=== PATIENT | female | born 1945 | race Caucasian/White ===

== ENCOUNTER 2018-04-22 08:44 | Outpatient (CLI) | payer MEDICARE, OTHER, SELFPAY ==
[2018-04-22 10:38] LABS: Abs Immature Grans 0.01 k/cumm (0.0-0.09); Absolute Basophil Count 0.05 k/cumm (0.0-0.2); Absolute Eosinophil Count 0.13 k/cumm (0.0-0.7); Absolute Lymphocyte Count 2.73 k/cumm (1.2-3.4); Absolute Monocyte Count 0.63 k/cumm (0.11-0.7); Absolute Neutrophil Count 3.65 k/cumm (1.2-6.7); Basophils % 0.7; Eosinophils % 1.8; HCT 42.1 % (36.0-46.0); HGB 13.5 g/dL (12.0-15.5); Immature Grans % 0.1; Lymphocytes % 37.9; Mean Corp. HGB Concentration 32.1 g/dL (32.0-36.0); Mean Corpuscular Hemoglobin 31.4 pg (27.0-33.0); Mean Corpuscular Volume 97.9 fL (80-95); Mean Platelet Volume 10.5 fL (8.0-11.0); Monocytes % 8.8; Neutrophils % 50.7; Platelet Count 331 x1000/uL (130-400); RBC Distribution Width 14.3 % (11.7-14.6)
== END 2018-04-22 09:04 ==
PROVIDERS: PCP Family Medicine; Visit Provider Orthopaedic Surgery
DX: M25.552 Pain in left hip (principal); M16.12 Unilateral primary osteoarthritis, left hip; E78.5 Hyperlipidemia, unspecified; Z01.818 Encounter for other preprocedural examination
CPT/HCPCS: 36415; 86850; 86900; 86901; 85025

== ENCOUNTER 2018-04-25 06:00 | Inpatient (IN) | payer MEDICARE, OTHER, SELFPAY ==
[2018-04-25] VITALS (15 sets, daily range): BP systolic 116–150; BP diastolic 57–80; PULSE 64–84; RESP 13–22; TEMP 35.8–37.1; O2SAT 92–98
[2018-04-25] MEDS: Lactated Ringers 1,000 ML 80 ML IV ×2 (06:47→09:18)
--- NOTE | 2018-04-25 09:03 | DI.RAD_ITS ---
SYMPTOMS/DIAGNOSIS: LEFT HIP OSTEOARTHRITIS LEFT HIP IN THE OR: The orthopedic hardware appears in good position. Portions of the abdomen are not well visualized due to patient body habitus and surgical equipment. IMPRESSION: Left THR.
--- NOTE | 2018-04-25 10:40 | DI.RAD_ITS ---
SYMPTOM/DIAGNOSIS: CHECK TOTAL HIP COMPONENTS, OA LT HIP, S/P TOTAL HIP AP PELVIS: There are again seen post surgical changes of a left total hip replacement. The orthopedic hardware appears in good position. The bones are intact. Skin kiera are present. The soft tissues are unremarkable. IMPRESSION: Status post left THR.
[2018-04-25] MEDS: oxyCODONE-CR 10 MG TABCR PO (11:54)
[2018-04-25] MEDS: POTASSIUM CHLORIDE/0.9% NACL 1,000 ML 125 MEQ IV (12:11)
[2018-04-25] MEDS: Docusate Sodium 100 MG CAP PO ×2 (14:20→19:27)
--- NOTE | 2018-04-25 14:56 | PT.INIE ---
Date of service: 04/25/18 Time of Service: 14:56 PT Notes Inpatient Physical Therapy Evaluation Date: 04/25/18 Referring Doctor: Trever Conrad PT Orders: PT CONSULT: mobilize post op L total hip. WBAT to L leg. total hip precautions L Precautions: left posterior total hip precautions, WBAT L LE Patient Profile/Admitting Diagnosis: Pt is a 72yr old female s/p left posterior total hip arthroplasty by Dr. Conrad 04/25/18 PMHX: calcaneal tuberosity right calcaneous Social History/Home Situation: Lives in house with spouse in [place], 3 steps no railing to enter, flight of steps inside but does not use them, can stay on one level inside of home. Baselne mobility independent gait with no device, independent with ADLS Equipment Owned/DME: FWW, commode Subjective: Pt lying in bed, alert, watching TV, agreeable to PT consult. States she hopes she can go home tomorrow. Objective: General Observation: IV L UE, abduction pillow between legs, ice pack left hip, yoon catheter, LAURIE hose Mental Status: A& ox3 Pain: no c/o pain Bed Mobility/Transfers: Supine-sit: HOB 30 degrees, Kendall for L LE Sit-stand: SBA with FWW Stand-sit: SBA Sit-supine: HOB flat, Kendall for L LE Gait: CGA with FWW 35ftx2 WBAT L LE, step through gait pattern with cues for sequencing. Pt returned to bed after session completed, abduction pillow positioned between legs. Precautions: Pt has pre-op packet with posterior JENNY instructions, home exercise program and precaution handouts provided. Pt instructed in 3/3 posterior hip precautions, pt verbalized understanding. Therex: Pt has issued home exercise program, performed ankle pumps, quad sets and glute sets x 20 reps Balance: Static Sitting: normal Dynamic Sitting: normal Static Standing: fair Dynamic Standing:fair Special Tests: Mobility Limitations Standardized Measure [facility] AM-PAC 6 clicks Basic Mobility Inpatient Short Form: Raw Score: 18 Standardized Score: 43.63 CMS Score: 46.58% CMS Modifier: CK Informed Consent/Education: Patient instructed in purpose of PT consult and plan of care. Assessment: Pt is a 72yr old female s/p left posterior total hip arthroplasty by Dr. Conrad 04/25/18. Patient presents with clinical signs and symptoms consistent with JENNY, as demonstrated by the following impairment level findings: edema left hip, weakness left hip, decreased strength with bed mobility requiring assist for L LE into/out of bed, decreased strength with standing transfers and gait mobiilty requiring FWW for stability to prevent falls, decreased static and dynamic standing balance s/p JENNY. Pt will benefit from therapy intervention for strengtheing and progressive mobility training. Anticipate return to home setting when medically cleared. Impairments are contributing to the following functional limitations: AMPAC score CMS Score: 46.58% Patient is assessed as a Low 61288 complexity based on the following: History: see above Examination:see aove Presentation: stable Decision Making: AMPAC score CMS Score: 46.58% Goals: Goals X1 week 1. Supine-Sit: supervision 2. Sit-Supine: supervision 3. Sit-Stand: supervision with FWW 4. Stand-Sit: supervision 5. Bed-Chair SBA with FWW 6. Chair-Bed SBA with FWW 7. Gait SBA with FWW 75ftx2 WBAT L LE 8. Stairs up/down 3 steps with cane, CGA WBAT L LE 9. Independent with home exercise program for JENNY Plan of Care/Treatment Plan: 1-2x/day, 7 days/week x 1 week. Plan of care has been reviewed with the LIVE TRUCK TECHNICIAN providing the service under Physical Therapy direction. Initiate Physical Therapy intervention for strengthening, bed mobility, transfers, gait, stairs, balance training, use of assistive device. DISCHARGE RECOMMENDATIONS: Home, pt has all DME TREATMENT CODE/TIME: 25min IE 1350 G Codes in the area mobility of walking and moving around: current status [id number] CK; projected status GP [id number]. Discharge status (if discharging) GP [id number] CK based on AMPAC score CMS Score: 46.58% Nohelia Louis PT.
--- NOTE | 2018-04-25 15:10 | IN_ITS ---
Date of service: 04/25/18 Time of Service: 14:56 PT Notes Inpatient Physical Therapy Evaluation Date: 04/25/18 Referring Doctor: Trever Conrad PT Orders: PT CONSULT: mobilize post op L total hip. WBAT to L leg. total hip precautions L Precautions: left posterior total hip precautions, WBAT L LE Patient Profile/Admitting Diagnosis: Pt is a 72yr old female s/p left posterior total hip arthroplasty by Dr. Conrad 04/25/18 PMHX: calcaneal tuberosity right calcaneous Social History/Home Situation: Lives in house with spouse in [place], 3 steps no railing to enter, flight of steps inside but does not use them, can stay on one level inside of home. Baselne mobility independent gait with no device, independent with ADLS Equipment Owned/DME: FWW, commode Subjective: Pt lying in bed, alert, watching TV, agreeable to PT consult. States she hopes she can go home tomorrow. Objective: General Observation: IV L UE, abduction pillow between legs, ice pack left hip , yoon catheter, LAURIE hose Mental Status: A& ox3 Pain: no c/o pain Bed Mobility/Transfers: Supine-sit: HOB 30 degrees, Kendall for L LE Sit-stand: SBA with FWW Stand-sit: SBA Sit-supine: HOB flat, Kendall for L LE Gait: CGA with FWW 35ftx2 WBAT L LE, step through gait pattern with cues for sequencing. Pt returned to bed after session completed, abduction pillow positioned between legs. Precautions: Pt has pre-op packet with posterior JENNY instructions, home exercise program and precaution handouts provided. Pt instructed in 3/3 posterior hip precautions, pt verbalized understanding. Therex: Pt has issued home exercise program, performed ankle pumps, quad sets and glute sets x 20 reps Balance: Static Sitting: normal Dynamic Sitting: normal Static Standing: fair Dynamic Standing:fair Special Tests: Mobility Limitations Standardized Measure [facility] AM-PAC 6 clicks Basic Mobility Inpatient Short Form: Raw Score: 18 Standardized Score: 43.63 CMS Score: 46.58% CMS Modifier: CK Informed Consent/Education: Patient instructed in purpose of PT consult and plan of care. Assessment: Pt is a 72yr old female s/p left posterior total hip arthroplasty by Dr. Conrad 04/25/18. Patient presents with clinical signs and symptoms consistent with JENNY, as demonstrated by the following impairment level findings : edema left hip, weakness left hip, decreased strength with bed mobility requiring assist for L LE into/out of bed, decreased strength with standing transfers and gait mobiilty requiring FWW for stability to prevent falls, decreased static and dynamic standing balance s/p JENNY. Pt will benefit from therapy intervention for strengtheing and progressive mobility training. Anticipate return to home setting when medically cleared. Impairments are contributing to the following functional limitations: AMPAC score CMS Score: 46.58% Patient is assessed as a Low 25424 complexity based on the following: History: see above Examination:see aove Presentation: stable Decision Making: AMPAC score CMS Score: 46.58% Goals: Goals X1 week 1. Supine-Sit: supervision 2. Sit-Supine: supervision 3. Sit-Stand: supervision with FWW 4. Stand-Sit: supervision 5. Bed-Chair SBA with FWW 6. Chair-Bed SBA with FWW 7. Gait SBA with FWW 75ftx2 WBAT L LE 8. Stairs up/down 3 steps with cane, CGA WBAT L LE 9. Independent with home exercise program for JENNY Plan of Care/Treatment Plan: 1-2x/day, 7 days/week x 1 week. Plan of care has been reviewed with the LICENSED BONDSMAN providing the service under Physical Therapy direction. Initiate Physical Therapy intervention for strengthening, bed mobility, transfers, gait, stairs, balance training, use of assistive device. DISCHARGE RECOMMENDATIONS: Home, pt has all DME TREATMENT CODE/TIME: 25min IE 1350 G Codes in the area mobility of walking and moving around: current status [id number] CK; projected status GP [id number]. Discharge status (if discharging) GP G8980 CK based on AMPAC score CMS Score: 46.58% Nohelia Louis PT.
[2018-04-25] MEDS: Ketorolac 30 MG/ML VIAL IVP ×2 (17:04→21:35)
[2018-04-25] MEDS: Normal Saline Flush 10 ML SYR IVP (17:05)
[2018-04-25] MEDS: POTASSIUM CHLORIDE/0.9% NACL 1,000 ML 60 MEQ IV (21:34)
[2018-04-25] MEDS: Atorvastatin 20 MG TAB PO (21:35)
[2018-04-26 01:05] VITALS: BP 99/62; PULSE 61; RESP 18; TEMP 36.5; O2SAT 95
[2018-04-26] MEDS: Mylanta Suspension 30 ML CUP PO (03:10)
[2018-04-26] MEDS: Ketorolac 30 MG/ML VIAL IVP ×2 (03:50→10:36)
[2018-04-26 03:52] VITALS: BP 106/62; PULSE 68; RESP 16; TEMP 36.3; O2SAT 96
[2018-04-26 06:49] LABS: HCT 31.3 % (36.0-46.0); HGB 10.1 g/dL (12.0-15.5); Mean Corp. HGB Concentration 32.3 g/dL (32.0-36.0); Mean Corpuscular Hemoglobin 31.6 pg (27.0-33.0); Mean Corpuscular Volume 97.8 fL (80-95); Mean Platelet Volume 10.7 fL (8.0-11.0); Platelet Count 246 x1000/uL (130-400); RBC Distribution Width 13.8 % (11.7-14.6); White Blood Cell Count 12.09 k/cumm (4.4-10.8)
--- NOTE | 2018-04-26 07:54 | ROE_ITS ---
REPORT OF OPERATIVE PROCEDURE DATE OF PROCEDURE April 25, 2018 PREOPERATIVE DIAGNOSIS Osteoarthritis left hip. POSTOPERATIVE DIAGNOSIS Osteoarthritis left hip. PROCEDURE Left total hip arthroplasty. COMPONENTS USED A 56 mm diameter acetabular shell, a 56 x 36 neutral polyethylene liner, #7 Press-Fit stem high offse t and a Plus 8.5 36-mm diameter ceramic femoral head. The components were all Press-Fit. ANESTHESIA Spinal. SURGEON Trever Conrad M.D. LABORATORY ASSOCIATE Antonio George INDICATIONS This is a 72-year-old white female with longstanding osteoarthritis of both hips, the left however be ing the mainly symptomatic one. She has progressed to the point where she can no longer perform activ ities of daily living because of the pain. She uses crutches to walk. X-rays show hypertrophic osteoa rthritis of her left hip with loss of hip joint space, hypertrophic spurring around the acetabular ma rgins and at the femoral head neck junction. Because of failure to control her symptoms with conserva tive treatment, surgery was recommended. The risks and complications of total hip replacement were ex plained to the patient in detail preoperatively. She wished to proceed as soon as possible. PROCEDURE The patient was taken to the operating room on 04/25/2018. A spinal anesthetic was administered. She was then turned to the left lateral position on the operating table. Position was maintained with a pneumatic beanbag. The left hip was prepped and draped free in the usual sterile fashion. A standard posterolateral incision was made centered over the greater trochanter. The incision length was simons ied down through the skin and subcu to the iliotibial band. The iliotibial band and gluteus fascia we re incised in line with the skin incision. There were several areas where the IT band was adherent to the greater trochanter because of scarring. The scar tissue was released. Charnley self-retraining r etractor was inserted. The piriformis tendon was identified. Tag suture was placed in the tendon. Th e tendon was then released from the posterior femoral neck. The remainder of the short external rotat ors were then released with electrocautery. An incision was made in the posterior capsule and a poste rior capsular flap was developed. Anterior capsulectomy was performed. The femoral head was dislocate d. The femoral head was resected at an appropriate level and angle using femoral neck resection guide and oscillating saw. Acetabular retractors were inserted and the acetabulum was serially reamed up t o a size 56 diameter acetabular shell. The acetabular shell was then Press-Fit and the Press-Fit was supplemented with one screw through the acetabular shell of 30 millimeters. I then used an osteotome and a rongeur and removed the hypertrophic spurs circumferentially around th e components so the spurs would not impinge on the femoral component and cause dislocation. Trial gypsy er was inserted and attention was turned to the femoral side. The femoral canal was then serially reamed with straight reamers, and then serially broached until th ere was a fairly tight fit with a size 6 stem. The 6 broach was left in place. Trial reduction was pe rformed. Intraoperative AP x-ray was obtained. The intraoperative AP x-ray shows the limb lengths we re equalized with a Plus 8.5 femoral head, but that the 6 stem was a little small and could be upsize d for better fit and fill. I then removed the trial components. The trial in the center hole plug of the acetabular shell was inserted and the actual liner neutral 56 x 36 was then placed in the acetab ular shell and locked into place with the impactor mallet. On the femoral side, I broached up to a s ize 7 broach, which provided an excellent tight fit. The actual stem size 7 BALTAZAR porous coated [place] s tem was then placed in the femur and impacted into place until fully seated. A very tight Press-Fit w as obtained. A 36 Plus 8.5 ceramic femoral head was then placed on the neck of the stem and locked in to place with the impactor mallet. The femoral component was then reduced into the acetabulum. Range of motion was checked. The hip was stable to 90 degrees of flexion with 60 degrees of internal rotati on and was stable with external rotation in extension. The left leg was abducted in a Gonzalez stand and closure was begun. 2 grams of tranexamic acid and 150 cc of saline were then irrigated in the wound and I let it stay in the wound for a minute before suctioning. I then placed Betadine and saline in t he wound and left it in place for another minute before suctioning. The previously developed posterio r capsular flap was attached to the posterior edge of the greater trochanter by interrupted #2 FiberW katherine passed through three drill holes in the posterior greater trochanter and the sutures were tied ov er bone. The piriformis tendon was attached to the posterior edge of the abductor tendon at the tip o f the trochanter with interrupted [id number] sutures of #1-Vicryl suture material. The wound mar gins were then infiltrated with 0.5% Marcaine with epinephrine solution. The IT band and gluteus fasc ia were approximated with interrupted [id number] sutures of #1 -Vicryl suture material. The sub cu was approximated with interrupted #2-0 Vicryl sutures. The skin edges were approximated with skin kiera. Sterile dressings were applied, followed by a light compressive dressing to the left latera l hip. The patient was then turned supine on the operating table. An abduction pillow was placed be tween her legs. She was discharged to Recovery Room in good condition. Estimated blood loss 300 cc. She tolerated the procedure well and experienced no intraoperative complications.
[2018-04-26] MEDS: Multivitamin w/Minerals TAB 1 TAB PO (08:01)
[2018-04-26] MEDS: Docusate Sodium 100 MG CAP PO (08:01)
[2018-04-26] MEDS: Pantoprazole 40 MG TABCR PO (08:01)
[2018-04-26 08:02] VITALS: BP 113/69; PULSE 76; RESP 17; TEMP 36.7; O2SAT 97
--- NOTE | 2018-04-26 09:30 | PT.INTREAT ---
Date of service: 04/26/18 Time of Service: 07:30 PT Notes Inpatient Physical Therapy Treatment Note Date: 04/26/18 PRECAUTIONS: Fall precautions, WBAT L LE SUBJECTIVE: Pt lying in bed, agreeable to PT session and getting up to chair for breakfast. States she is feeling good, no pain, some stiffness from lying still all night. Pt is eager to go home today if possible. OBJECTIVE: General Observation: IV UE, abduction pillow between legs, ice pack left hip, yoon catheter, LAURIE hose Pain: no c/o pain Bed Mobility/Transfers: Supine-sit: independent Sit-stand: independent with FWW Stand-sit: independent Bed-chair: independent Gait: independent with FWW 200ft WBAT L LE. Pt up in chair for breakfast after session completed. Stairs: up/down 5 steps with supervision with railing and cane, WBAT L LE Precautions: Reviewed posterior JENNY instructions, home exercise program and precaution handouts provided. Pt instructed in 3/3 posterior hip precautions, pt verbalized understanding. Therex: Performed ankle pumps, quad sets and glute sets x 20 reps Balance: Static Sitting: normal Dynamic Sitting: normal Static Standing: fair Dynamic Standing:fair ASSESSMENT: Pt is independent with transfers and gait with FWW 200ft, supervision on stairs with cane, independent with hip precautions and therex program. Pt is ready for discharge to home today if cleared by MD. PLAN: See one more session then D/C PT TREATMENT CODE/TIME: 24min TAx1 TPx1 7:30 Nohelia Louis PT
[2018-04-26] MEDS: Normal Saline Flush 10 ML SYR IVP (10:38)
[2018-04-26] MEDS: Enoxaparin 40 MG/0.4 ML SYR SC (10:39)
[2018-04-26 11:30] VITALS: BP 108/51; PULSE 82; RESP 18; TEMP 37.5; O2SAT 94
--- NOTE | 2018-04-26 11:43 | PDOC.CMIN ---
- If Service Date Differs Date of service: 04/26/18 Time of Service: 11:43 Care Management Initial Assess PAST MEDICAL HISTORY/PAST SURGICAL HISTORY:: Arthritis, Deafness, GERD, Hx vasomotor flush, Hyperlipidemia, Osteoarthritis (L) hip, KWASI-prolapse, Smoker, Calcaneal tuberosity (R) calcaneous PREVIOUS FUNCTIONAL STATUS/SOCIAL/FAMILY SUPPORTS:: Angella resides with her Carlos in [facility]. She states that they have been for 47 years and have six children two of whom reside in [place] and four locally. Angella states that two of her children reside with her currently. Angella states that she no longer has a working car, therefore depends on her children for assistance with transportation. She is independent at baseline, cooks, cleans, and manages ADL's. CURRENT FUNCTIONAL STATUS:: Currently Angella is sitting up in her chair when this sheet writer visits. She is pleasant and open to discussion. Angella states that she is hopeful to return home today. ADVANCE DIRECTIVES:: None on file Has patient been provided with information about the portal?: Yes Did the patient sign up for the portal?: No CODE STATUS:: Full Code INSURANCE COVERAGE / FINANCIAL ISSUES:: Medicare, CURRENT HOME/COMMUNITY SERVICES/EQUIPMENT:: Currently Angella has a walker, commode, forearm crutches, raised toilet, and shower chair at home. She has no services in the community at this time. PRIMARY CARE PHYSICIAN:: Dr. Connelly POTENTIAL DISCHARGE NEEDS:: F/U appointment with Dr. Conrad PATIENT/FAMILY EDUCATION NEEDS:: Review DC instructions, any limitations, and ongoing DC planning discussion. Review Ask Me Three ANTICIPATED BARRIERS TO DISCHARGE:: None identified at this time. TRANSPORTATION:: Via private vehicle with daughter Sera PLAN:: Angella will return home with no anticipated services. She has all appropriate DME needed. Angella will F/U with Dr. Conrad and plan of care as prescribed. Her daughter Sera will transport when ready.
--- NOTE | 2018-04-26 12:03 | INITIAL_ITS ---
- If Service Date Differs Date of service: 04/26/18 Time of Service: 11:43 Care Management Initial Assess PAST MEDICAL HISTORY/PAST SURGICAL HISTORY:: Arthritis, Deafness, GERD, Hx vasomotor flush, Hyperlipidemia, Osteoarthritis (L) hip, KWASI-prolapse, Smoker, Calcaneal tuberosity (R) calcaneous PREVIOUS FUNCTIONAL STATUS/SOCIAL/FAMILY SUPPORTS:: Angella resides with her Carlos in [facility]. She states that they have been for 47 years and have six children two of whom reside in [place] and four locally. Angella states that two of her children reside with her currently. Angella states that she no longer has a working car, therefore depends on her children for assistance with transportation. She is independent at baseline, cooks, cleans, and manages ADL's. CURRENT FUNCTIONAL STATUS:: Currently Angella is sitting up in her chair when this screenplay writer visits. She is pleasant and open to discussion. Angella states that she is hopeful to return home today. ADVANCE DIRECTIVES:: None on file Has patient been provided with information about the portal?: Yes Did the patient sign up for the portal?: No CODE STATUS:: Full Code INSURANCE COVERAGE / FINANCIAL ISSUES:: Medicare, CURRENT HOME/COMMUNITY SERVICES/EQUIPMENT:: Currently Angella has a walker, commode, forearm crutches, raised toilet, and shower chair at home. She has no services in the community at this time. PRIMARY CARE PHYSICIAN:: Dr. Connelly POTENTIAL DISCHARGE NEEDS:: F/U appointment with Dr. Conrad PATIENT/FAMILY EDUCATION NEEDS:: Review DC instructions, any limitations, and ongoing DC planning discussion. Review Ask Me Three ANTICIPATED BARRIERS TO DISCHARGE:: None identified at this time. TRANSPORTATION:: Via private vehicle with daughter Sera PLAN:: Angella will return home with no anticipated services. She has all appropriate DME needed. Angella will F/U with Dr. Conrad and plan of care as prescribed. Her daughter Sera will transport when ready.
--- NOTE | 2018-04-26 13:17 | W.PM.DS.N ---
Date of service: 04/26/18 Time of Service: 13:18 DS: Diagnosis Discharge Diagnosis (1) Osteoarthritis of left hip: Start date: 04/25/18 Start time: 13:19 Status: Acute Discharge Plan Disposition Patient Disposition: HOME Condition: Good Discharge Details Reason For Visit: OA (L) HIP Admit Date/Time: 04/25/18 06:00 Admit Provider: Trever Conrad Attending Provider: Trever Conrad Primary Care Provider: Rosanna Connelly V Home Meds and New Rx's Prescriptions: New celecoxib [Celebrex] 200 mg capsule 200 mg PO BID Qty: 60 RF: 0 hydromorphone [Dilaudid] 4 mg tablet 4 mg PO Q6H PRN (Reason: pain) Qty: 20 RF: 0 Continue acetaminophen [Tylenol] 325 MG tablet 650 mg PO Q4H PRN RF: 0 atorvastatin [Lipitor] 20 MG tablet 20 mg PO HS RF: 0 esomeprazole magnesium [Nexium] 20 MG capsule,delayed release(DR/EC) 20 mg PO DAILY PRNRF: 0 multivitamin 1 EACH capsule 1 ea PO DAILY RF: 0 prednisolone acetate 1 % Drops,Suspension 1 drp OPHTHALMIC (EYE) BID RF: 0 ketorolac 0.4 % Drops 1 drp OPHTHALMIC (EYE) BID RF: 0 cyanocobalamin (vitamin B-12) 1,000 mcg/mL Solution 1,000 mcg IM QMONTH RF: 0 Discharge Instructions Additional Instructions: Walk every day as much as your discomfort allows. Use walker or cane as long as you limp. Follow total hip precautions on L for 6 weeks. Apply ice to L hip incision 4 times/day for 1 hour each time. May remove dressings, shower, and get kiera wet on Thurs. Pat kiera dry and cover kiera with light gauze dressing so they don't catch on clothes. You can lay on L side. Follow up in 's office in 2 weeks. Take celebrex for inflammation and pain. Take dilaudid for breakthru pain. Take one baby aspirin (81 mg) twice/day for 30 days, to prevent bllod clots in legs. Care Plan Goals: Independant ambulation and ADL's. Stand Alone Forms: Nursing Discharge Form Activity:: Activity as Tolerated Remove Dressings/Wound Care:: 72 hours Shower/Bathe:: 72 hours Activity:: Activity as Tolerated Equipment/Supplies:: Walker Diet:: As Tolerated Discharge Orders Discharge Orders: Discharge Order (Routine); Ordered 04/26/18 Ordered By: Trever Conrad DS: Data Vitals/I&O Vitals and I&O: Vital Signs Temperature 37.5 C 04/26/18 11:30 Temperature Source Tympanic 04/26/18 11:30 Pulse 82 04/26/18 11:30 Pulse Rhythm Regular 04/26/18 07:40 Respiratory Rate 18 04/26/18 11:30 Respiratory Effort Non-Labored 04/26/18 07:40 Respiratory Depth Normal 04/26/18 07:40 Respiratory Pattern Normal 04/26/18 07:40 Blood Pressure 108/51 L 04/26/18 11:30 Pulse Oximetry 94 L 04/26/18 11:30 Respiratory End-tidal CO2 33 04/25/18 10:45 Oxygen Delivery Method Room Air 04/26/18 11:30 Oxygen Flow Rate 0 04/26/18 11:30 Pain Level 0 04/26/18 11:30 Comment 04/26/18 01:05 Intake & Output 04/25/18 04/26/18 04/26/18 23:59 11:59 23:59 Intake Total 1910 / 1910 1977.667 / 1977.667 480 / 480 Output Total 1000 / 1000 1250 / 1250 200 / 200 Balance 910 / 910 727.667 / 727.667 280 / 280 Intake: IV 1790 / 1790 617.667 / 617.667 Oral 120 / 120 1360 / 1360 480 / 480 Output: Urine 1000 / 1000 1250 / 1250 200 / 200 Other: Urine Color Yellow Yellow Urine Appearance Clear Clear Clear Urine Odor Normal Stool Size Large Stool Characteristics Soft Formed Brown Voiding Methods Toilet Labs on day of discharge: Labs from last 24 hours 04/26/18 06:05 WBC 12.09 H RBC 3.20 L Hgb 10.1 L Hct 31.3 L MCV 97.8 H MCH 31.6 MCHC 32.3 RDW 13.8 Plt Count 246 MPV 10.7
--- NOTE | 2018-04-26 13:38 | PDOC.CMDIS ---
- If Service Date Differs Date of service: 04/26/18 Time of Service: 13:38 LACE Index Scoring Tool - Questions: Length of Stay (in days): 2 Acuity (Admit via E.D.?): No E.D. Visits: 0 - Answers: Total Score: 2 Risk of Readmission: Low Risk Care Management Discharge Reason for Hospitalization: OA (L) Hip Discharge Plan: Angella will return home today with no services. She will F/U with Dr. Conrad and plan of care as prescribed. Angella's daughter aaron will transport. Patient/Family Education Needs: Review DC instructions, any limitations, and discuss Ask Me Three
--- NOTE | 2018-04-26 14:41 | PT.INDS ---
Date of service: 04/26/18 Time of Service: 14:41 PT Notes Inpatient Physical Therapy Discharge Summary Date: 04/26/18 Dates of Service: 04/25/18-04/26/18 SUBJECTIVE: NT OBJECTIVE: 04/25/18-04/26/18 Bed Mobility/Transfers: Supine-sit: independent Sit-supine: independent Sit-stand: independent with FWW Stand-sit: independent Bed-chair: independent with FWW Chair-bed: independent with fWW Gait: independent with FWW 200ft WBAT L LE Stairs: up/down 5 steps with railing and cane, supervision WBAT L LE Balance: Static Sitting: normal Dynamic Sitting: normal Static Standing: fair Dynamic Standing:fair Assessment: Pt is a 72yr old female s/p left posterior total hip arthroplasty by Dr. Conrad 04/25/18. Pt was seen for 2 PT visits. Progressed from [place] bed transfers to independent, from SBA standing transfer to independent, from CGA gait with FWW 35ftx2 to independent gait with FWW 200ft, able to ascend/descend 5 steps with railing and cane, supervision WBAT L LE. Pt has met therapy goals and is discharged to home setting. Goals: Goals X1 week 1. Supine-Sit: supervision 2. Sit-Supine: supervision 3. Sit-Stand: supervision with FWW 4. Stand-Sit: supervision 5. Bed-Chair SBA with FWW 6. Chair-Bed SBA with FWW 7. Gait SBA with FWW 75ftx2 WBAT L LE 8. Stairs up/down 3 steps with cane, CGA WBAT L LE 9. Independent with home exercise program for JENNY Pt met goals 1-9 DISCHARGE RECOMMENDATIONS: Home, pt has all DME G Codes in the area mobility of walking and moving around; projected status GP [id number]. Discharge status (if discharging) GP [id number] CK Nohelia Louis PT.
--- NOTE | 2018-04-26 15:11 | OT.INIE ---
Occupational Therapy Notes Inpatient Occupational Therapy Evaluation Date: 04/26/18 Referring Doctor:Trever Conrad MD OT Orders: Help with self-care after (L) total hip Precautions: left posterior total hip precautions, WBAT L LE PATIENT PROFILE/ADMITTING DIAGNOSIS: Pt is a 72 year old female s/p left posterior total hip arthroplasty by Dr. Conrad 04/25/18. Past Medical History: Calcaneal tuberosity right calcaneous Current Functional Limitations: Difficulty performing ADLs within posterior hip precautions without adaptive equipment. Social History/Home Situation: Pt reports that she lives in house with her spouse and two children in [place], 3 steps without a railing to enter, flight of steps inside but does not use them. Reports that she can stay on one level inside of home. Pt reports that her bathroom set up is a tub/shower combo with seat in shower and fixed shower head. Pt reports baseline performance in ADL routine was (I). Equipment owned/DME: FWW, commode SUBJECTIVE: Pt lying supine in bed HOB 17* when OT arrived. Pt states I have been waiting for you to come and is agreeable to OT session for education on use of adaptive equipment. Pt reports that she did not sleep well last night and is tired but ready to go home whenever the doctor lets her. OBJECTIVE: General Observation: IV L UE, abduction pillow between legs, LAURIE stockings (B) LE Mental Status: A&Ox3 Pain: no c/o pain ROM: RUE WNL L UE WNL STRENGTH: RUE 5/5 throughout LUE 5/5 throughout FUNCTIONAL MOBILITY/ADLS: Transfers Supine-sit S Sit-Stand S, FWW Stand-sit S, FWW Bed-Chair S, FWW BATHING: Pt denies bathing during todays OT session. Pt educated in use of long handled sponge and shower chair/bench when returning home. Pt states, that she does not plan to use her shower in her home and instead plans to sponge bath. DRESSING Dressing UE Pt able to (I) don and doff upper body clothing. Dressing LE: Pt educated on use of talent associate, dressing hook and sock aid. Pt provided written and illustrated handout for instructions on how to perform. With use of sock aid pt was mod (I) to don socks. Pt able to (I) doff socks with use of talent associate adhering to posterior hip precautions. Pt required minimal verbal cues to don pants to (B) LE with instruction to place new leg in first and new leg out last. With use of dressing hook and talent associate pt able to perform lower body dressing (I). Precautions: Pt has pre-op packet with posterior JENNY instructions, home exercise program and precaution handouts provided by OT with written and illustrated instructions. Pt instructed in 3/3 posterior hip precautions, pt verbalized understanding. BALANCE: Static sitting Normal Dynamic Sitting Normal Static Standing Normal SPECIAL TESTS: Daily Activity Limitations Standardized Measure [facility] AM -PAC ?6 clicks? Daily Activity Inpatient Short Form: Raw score: 22 Standardized score: 47.10 CMS score: 25.80% CMS modifier: CJ INFORMED CONSENT/EDUCATION: Pt instructed in purpose of OT Consult and plan of care. ASSESSMENT: Patient is a 72 -year-old female referred to occupational therapy services with diagnosis of s/p left posterior total hip arthroplasty by Dr. Conrad 04/25/18. Patient demonstrated decreased (I) in ADL routine without use of adaptive equipment. With use of adaptive equipment pt demonstrated ideal technique with adhering to posterior hip precautions with min-mod verbal cues. Pt reported that her daughter will help her perfrom ADLs as needed until hip precautions are lifted per MD orders. Pt was receptive to educated provided during OT consult. OT recommend that pt return home when medically cleared per MD. With use of adaptive equipment pt demonstrated mod (I) in dressing routine. Pt does not need further skilled OT at this time. D/C pt from OT services at this time. AMPAC score 22, CMS score 25.80% Patient is assessed as a Low [id number] complexity based on the following: History: See above Examination: see above Presentation: evolving Decision Making: AMPAC score 22, CMS score 25.80% GOALS N/A PLAN OF CARE/TREATMENT PLAN: DISCHARGE RECOMMENDATIONS Home when medically cleared. Pt reports that she has all DME. TREATMENT TIME/MINUTES/CODES 25 min, IE, Self care x1, 10:07 G Codes in the area of self- : washing oneself, toileting, dressing, eating and drinking, current status [id number] projected status GP [id number]. Discharge status (if discharging) GP [id number]
--- NOTE | 2018-04-26 15:12 | W.PM.DSUDISC ---
Discharge Plan Disposition Patient Disposition: HOME Condition: Good Discharge Details Reason For Visit: OA (L) HIP Admit Date/Time: 04/25/18 06:00 Admit Provider: Trever Conrad Attending Provider: Trever Conrad Primary Care Provider: Rosanna Connelly V Hospital Course Hospital Course: Patient was taken the operating room on 04/25/2018 where she underwent a left total hip arthroplasty without complications. By the following day, 04/26/2018, she was requesting to go home. She was taking no other medicines for pain other than the scheduled Toradol and OxyContin. She was afebrile vital signs were stable. Hemoglobin was 10.1 g. She was fully independent with transfers and ambulation with a walker. I felt she had already achieved her acute care goals and could be safely discharged home. Home Meds and New Rx's Prescriptions: New celecoxib [Celebrex] 200 mg capsule 200 mg PO BID Qty: 60 RF: 0 hydromorphone [Dilaudid] 4 mg tablet 4 mg PO Q6H PRN (Reason: pain) Qty: 20 RF: 0 Continue acetaminophen [Tylenol] 325 MG tablet 650 mg PO Q4H PRN RF: 0 atorvastatin [Lipitor] 20 MG tablet 20 mg PO HS RF: 0 esomeprazole magnesium [Nexium] 20 MG capsule,delayed release(DR/EC) 20 mg PO DAILY PRNRF: 0 multivitamin 1 EACH capsule 1 ea PO DAILY RF: 0 prednisolone acetate 1 % Drops,Suspension 1 drp OPHTHALMIC (EYE) BID RF: 0 ketorolac 0.4 % Drops 1 drp OPHTHALMIC (EYE) BID RF: 0 cyanocobalamin (vitamin B-12) 1,000 mcg/mL Solution 1,000 mcg IM QMONTH RF: 0 Discharge Instructions Instructions: Total Hip Replacement (DC) Additional Instructions: Walk every day as much as your discomfort allows. Use walker or cane as long as you limp. Follow total hip precautions on L for 6 weeks. Apply ice to L hip incision 4 times/day for 1 hour each time. May remove dressings, shower, and get kiera wet on Thurs. Pat kiera dry and cover kiera with light gauze dressing so they don't catch on clothes. You can lay on L side. Follow up in 's office in 2 weeks. Take celebrex for inflammation and pain. Take dilaudid for breakthru pain. Take one baby aspirin (81 mg) twice/day for 30 days, to prevent bllod clots in legs. Care Plan Goals: Independant ambulation and ADL's. Stand Alone Forms: Nursing Discharge Form Referrals: Trever Conrad MD [ [facility] STAFF PHYSICIAN] - 05/10/18 10:30 am Activity:: Activity as Tolerated Equipment/Supplies:: Walker Diet:: As Tolerated Discharge Orders Discharge Orders: Discharge Order (Routine); Ordered 04/26/18 Ordered By: Trever Conrad DS: Diagnosis Discharge Diagnosis (1) Osteoarthritis of left hip: Status: Acute
--- NOTE | 2018-04-26 15:27 | OTIE_ITS ---
Occupational Therapy Notes Inpatient Occupational Therapy Evaluation Date: 04/26/18 Referring Doctor:Trever Conrad MD OT Orders: Help with self-care after (L) total hip Precautions: left posterior total hip precautions, WBAT L LE PATIENT PROFILE/ADMITTING DIAGNOSIS: Pt is a 72 year old female s/p left posterior total hip arthroplasty by Dr. Conrad 04/25/18. Past Medical History: Calcaneal tuberosity right calcaneous Current Functional Limitations: Difficulty performing ADLs within posterior hip precautions without adaptive equipment. Social History/Home Situation: Pt reports that she lives in house with her spouse and two children in [place], 3 steps without a railing to enter, flight of steps inside but does not use them. Reports that she can stay on one level inside of home. Pt reports that her bathroom set up is a tub/shower combo with seat in shower and fixed shower head. Pt reports baseline performance in ADL routine was (I). Equipment owned/DME: FWW, commode SUBJECTIVE: Pt lying supine in bed HOB 17* when OT arrived. Pt states I have been waiting for you to come and is agreeable to OT session for education on use of adaptive equipment. Pt reports that she did not sleep well last night and is tired but ready to go home whenever the doctor lets her. OBJECTIVE: General Observation: IV L UE, abduction pillow between legs, LAURIE stockings (B) LE Mental Status: A&Ox3 Pain: no c/o pain ROM: RUE WNL L UE WNL STRENGTH: RUE 5/5 throughout LUE 5/5 throughout FUNCTIONAL MOBILITY/ADLS: Transfers Supine-sit S Sit-Stand S, FWW Stand-sit S, FWW Bed-Chair S, FWW BATHING: Pt denies bathing during todays OT session. Pt educated in use of long handled sponge and shower chair/bench when returning home. Pt states, that she does not plan to use her shower in her home and instead plans to sponge bath. DRESSING Dressing UE Pt able to (I) don and doff upper body clothing. Dressing LE: Pt educated on use of black topper, dressing hook and sock aid. Pt provided written and illustrated handout for instructions on how to perform. With use of sock aid pt was mod (I) to don socks. Pt able to (I) doff socks with use of black topper adhering to posterior hip precautions. Pt required minimal verbal cues to don pants to (B) LE with instruction to place new leg in first and new leg out last. With use of dressing hook and black topper pt able to perform lower body dressing (I). Precautions: Pt has pre-op packet with posterior JENNY instructions, home exercise program and precaution handouts provided by OT with written and illustrated instructions. Pt instructed in 3/3 posterior hip precautions, pt verbalized understanding. BALANCE: Static sitting Normal Dynamic Sitting Normal Static Standing Normal SPECIAL TESTS: Daily Activity Limitations Standardized Measure [facility] AM -PAC ?6 clicks? Daily Activity Inpatient Short Form: Raw score: 22 Standardized score: 47.10 CMS score: 25.80% CMS modifier: CJ INFORMED CONSENT/EDUCATION: Pt instructed in purpose of OT Consult and plan of care. ASSESSMENT: Patient is a 72 -year-old female referred to occupational therapy services with diagnosis of s/p left posterior total hip arthroplasty by Dr. Conrad 04/25/18. Patient demonstrated decreased (I) in ADL routine without use of adaptive equipment. With use of adaptive equipment pt demonstrated ideal technique with adhering to posterior hip precautions with min-mod verbal cues. Pt reported that her daughter will help her perfrom ADLs as needed until hip precautions are lifted per MD orders. Pt was receptive to educated provided during OT consult. OT recommend that pt return home when medically cleared per MD. With use of adaptive equipment pt demonstrated mod (I) in dressing routine. Pt does not need further skilled OT at this time. D/C pt from OT services at this time. AMPAC score 22, CMS score 25.80% Patient is assessed as a Low 04425 complexity based on the following: History: See above Examination: see above Presentation: evolving Decision Making: AMPAC score 22, CMS score 25.80% GOALS N/A PLAN OF CARE/TREATMENT PLAN: DISCHARGE RECOMMENDATIONS Home when medically cleared. Pt reports that she has all DME. TREATMENT TIME/MINUTES/CODES 25 min, IE, Self care x1, 10:07 G Codes in the area of self- : washing oneself, toileting, dressing, eating and drinking, current status [id number] projected status GP [id number]. Discharge status (if discharging) GP [id number]
== END 2018-04-26 15:13 | disposition home or self-care (01) | DRG 470 ==
LOC: MS 04-26 13:36 → PDS 04-27 09:32
PROVIDERS: Admitting Provider Orthopaedic Surgery; PCP Family Medicine; Visit Provider Orthopaedic Surgery
PROC: 0SRB04A Replacement of Left Hip Joint with Ceramic on Polyethylene Synthetic Substitute, Uncemented, Open Approach (ICD-10-PCS; CPT 27130; principal; 2018-04-25 07:30)
DX: M16.12 Unilateral primary osteoarthritis, left hip (principal); Z96.642 Presence of left artificial hip joint; K21.9 Gastro-esophageal reflux disease without esophagitis; E78.5 Hyperlipidemia, unspecified
CPT/HCPCS: 27130; 36415; 85027; 97110; 97161; 97165; 97530; 97535; J1650; J3490; NC; 72170; 73501; J0131; J0690; J1100; J1885; J2250; J2405; L1686

== ENCOUNTER → 2018-04-25 09:17 | Outpatient (BNVA) | payer MEDICARE, OTHER, SELFPAY | PROVIDERS: PCP Family Medicine; Referring Provider Family Medicine; Visit Provider Orthopaedic Surgery | DX: R69 Illness, unspecified (principal) ==

== ENCOUNTER 2018-05-10 11:06 | Outpatient (CLI) | payer MEDICARE, OTHER, SELFPAY ==
--- NOTE | 2018-05-10 10:43 | DI.RAD_ITS ---
SYMPTOM/DIAGNOSIS: F/U TOTAL HIP LEFT HIP AND PELVIS: Comparison is made with portable exam dated 04/25/18. There has been no change in the left hip prosthesis or surrounding bone. There are stable degenerative changes of the right hip.
== END 2018-05-10 11:26 ==
PROVIDERS: PCP Family Medicine; Referring Provider Family Medicine; Visit Provider Orthopaedic Surgery
DX: Z96.642 Presence of left artificial hip joint (principal); Z47.1 Aftercare following joint replacement surgery; M16.11 Unilateral primary osteoarthritis, right hip
CPT/HCPCS: 73502

== ENCOUNTER → 2018-06-21 10:52 | Outpatient (BNVA) | payer MEDICARE, OTHER, SELFPAY | PROVIDERS: PCP Family Medicine; Referring Provider Family Medicine; Visit Provider Orthopaedic Surgery | DX: Z47.1 Aftercare following joint replacement surgery (principal); Z96.642 Presence of left artificial hip joint; M16.12 Unilateral primary osteoarthritis, left hip ==

== ENCOUNTER → 2019-05-09 10:31 | Outpatient (BNVA) | payer MEDICARE, OTHER, SELFPAY | PROVIDERS: PCP Family Medicine; Referring Provider Family Medicine; Visit Provider Orthopaedic Surgery | DX: Z96.642 Presence of left artificial hip joint (principal); Z47.1 Aftercare following joint replacement surgery | CPT/HCPCS: 99213 ==

== ENCOUNTER 2019-12-15 09:58 | Outpatient (REF) | payer MEDICARE, OTHER, SELFPAY ==
[2019-12-15 19:54] LABS: ALT 30 U/L (14-59); AST 20 U/L (15-37); Albumin 3.9 g/dL (3.4-5.0); Alkaline Phosphatase 105 U/L (46-116); Anion Gap 8.2 mmol/L (3-11); BUN 15 mg/dL (7-18); Bilirubin, Total 0.3 mg/dL (0.2-1.0); CO2 26.8 mmol/L (21.0-32.0); CREATININE 0.72 mg/dL (0.55-1.02); Calculated LDL 118 mg/dL (<100); Chloride 102 mmol/L (98-107); Cholesterol 196 mg/dL (<200); Glucose 109 mg/dL (74-106); HCT 43.5 % (36.0-46.0); HDL Cholesterol 53 mg/dL (40-60); Mean Corp. HGB Concentration 32.2 g/dL (32.0-36.0); Mean Corpuscular Hemoglobin 31.3 pg (27.0-33.0); Mean Corpuscular Volume 97.1 fL (80-95); Mean Platelet Volume 11.1 fL (8.0-11.0); Platelet Count 389 x1000/uL (130-400); Potassium 4.5 mmol/L (3.5-5.1); RBC 4.48 m/cumm (4.00-5.20); RBC Distribution Width 14.1 % (11.7-14.6); Sodium 137 mmol/L (136-145); Total Protein 7.7 g/dL (6.4-8.2); Triglyceride 125 mg/dL (<150); White Blood Cell Count 7.47 k/cumm (4.4-10.8)
== END 2019-12-15 10:18 ==
LOC: NCHCN 09:58
PROVIDERS: PCP Family Medicine; Visit Provider Family Medicine
DX: E78.5 Hyperlipidemia, unspecified (principal); R73.09 Other abnormal glucose; Z86.2 Personal history of diseases of the blood and blood-forming organs and certain disorders involving the immune mechanism
CPT/HCPCS: 80053; 80061; 85027

== ENCOUNTER 2022-12-04 12:18 | Outpatient (REF) | payer MEDICARE, OTHER, SELFPAY ==
[2022-12-04 15:38] LABS: HCT 43.5 % (36.0-46.0); HGB 14.4 g/dL (11.2-15.7)
[2022-12-04 15:44] LABS: ESR 32 mm/hr (0-30)
[2022-12-04 16:15] LABS: ALT 20 U/L (14-59); AST 20 U/L (15-37); Albumin 3.7 g/dL (3.4-5.0); Alkaline Phosphatase 88 U/L (46-116); Anion Gap 9.2 mmol/L (3-11); BUN 20 mg/dL (7-18); Bilirubin, Total 0.3 mg/dL (0.2-1.0); CO2 28.8 mmol/L (21.0-32.0); CREATININE 0.7 mg/dL (0.55-1.02); Calcium 9.3 mg/dL (8.5-10.1); Calculated LDL 115 mg/dL (<100); Chloride 104 mmol/L (98-107); Cholesterol 194 mg/dL (<200); Estimated GFR 90.14 (mL/min/1.73m2); Glucose 103 mg/dL (74-106); HDL Cholesterol 47 mg/dL (40-60); Potassium 4.2 mmol/L (3.5-5.1); Sodium 142 mmol/L (136-145); Triglyceride 162 mg/dL (<150); Vitamin B12 714 pg/mL (193-986)
== END 2022-12-04 12:19 | disposition home or self-care (01) ==
LOC: NCHCN 12:18
PROVIDERS: PCP Family Medicine; Visit Provider Family Medicine
DX: R51.9 Headache, unspecified (principal); E53.8 Deficiency of other specified B group vitamins; Z86.2 Personal history of diseases of the blood and blood-forming organs and certain disorders involving the immune mechanism; Z86.79 Personal history of other diseases of the circulatory system; R70.0 Elevated erythrocyte sedimentation rate; E78.5 Hyperlipidemia, unspecified
CPT/HCPCS: 80053; 80061; 85652; 82607; 85014; 85018